=== PATIENT | female | born 1965 | race Caucasian/White ===

== ENCOUNTER → 2017-09-21 | Outpatient (CLI) | payer OTHER | LOC: FIMAGING 08:44 | PROVIDERS: ATTEND Family Medicine | DX: Z12.31 Encounter for screening mammogram for malignant neoplasm of breast (principal); Z80.3 Family history of malignant neoplasm of breast | CPT/HCPCS: G0202 ==

== ENCOUNTER 2018-03-09 20:34 | Emergency (ER) | payer OTHER ==
--- NOTE | 2018-03-09 20:51 | CPEKG ---
Heart Rate: 72 RR Interval: 833 P-R Interval: 144 QRSD Interval: 84 QT Interval: 368 QTC Interval: 403 P [place]: 74 QRS [place]: 79 T Wave [place]: 54 EKG Severity - NORMAL ECG - EKG Impression: SINUS RHYTHM Electronically Signed By: Nanci Bo 09-Mar-2018 23:01:51
--- NOTE | 2018-03-09 21:05 | EDPHY ---
H & P Stated Complaint: dizzy, SOB, anxious Time Seen by Provider: 03/09/18 20:44 HPI/ROS: CHIEF COMPLAINT: Chest pain HISTORY OF PRESENT ILLNESS: 52-year-old female presents with anxiety and diaphoresis. She has recently been under a large amount of stress and is having menopausal symptoms. 2 evenings ago she was lying in bed and had onset of sweatiness and left shoulder discomfort, associated with increased anxiety and the need to take a deep breath. This evening, she had a similar episode. She became concerned that she was having a heart attack, which prompted her visit. No history of exertional chest pain or shortness of breath. Cardiac risk factors negative. Nonsmoker; no family history; no hypertension, diabetes or hypercholesterolemia. REVIEW OF SYSTEMS: complete 10 point ROS negative except at noted in the HPI - Personal History LMP (Females 10-55): Post Menopausal - Medical/Surgical History Hx Asthma: No Hx Chronic Respiratory Disease: No Hx Diabetes: No Hx Cardiac Disease: No Hx Renal Disease: No Hx Cirrhosis: No Hx Alcoholism: No Hx HIV/AIDS: No Hx Splenectomy or Spleen Trauma: No - Social History Smoking Status: Never smoked - Physical Exam Exam: General Appearance: Alert, pleasant Eyes: Pupils equal and round, no conjunctival pallor or injection ENT, Mouth: Mucous membranes moist Neck: Normal inspection Respiratory: Lungs are clear to auscultation Cardiovascular: Regular rate and rhythm Gastrointestinal: Abdomen is soft and nontender Neurological: A&O, nonfocal exam Skin: Warm and dry, no rash Extremities: Nontender, no pedal edema Psychiatric: Anxious Constitutional: Initial Vital Signs Temperature (C) 36.4 C 03/09/18 20:37 Heart Rate 83 03/09/18 20:37 Respiratory Rate 20 03/09/18 20:37 Blood Pressure 136/89 H 03/09/18 20:37 O2 Sat (%) 99 03/09/18 20:37 O2 Delivery Mode Room Air Allergies/Adverse Reactions: amoxicillin [From Augmentin] Allergy (Verified 03/09/18 20:36) clavulanic acid [From Augmentin] Allergy (Verified 03/09/18 20:36) Home Medications: Medication Instructions Recorded NK [No Known Home Meds] 03/09/18 Medical Decision Making - Diagnostics EKG Interpretation: EKG interpreted by me reveals normal sinus rhythm, normal axis and intervals. Interpretation: Normal EKG Imaging Results: Imaging Impressions Chest X-Ray 03/09/18 20:53 Impression: Normal chest x-ray. ED Course/Re-evaluation: This patient presents with multiple symptoms, most likely secondary to anxiety. Stat EKG reveals no evidence of with ischemia or dysrhythmia. Laboratory tests and chest x-ray are unremarkable. I doubt cardiac etiology for symptoms. She feels much better after knowing that her tests are normal. She is asymptomatic on discharge. She will follow up with primary care physician and cardiology for further evaluation. Warning signs discussed. Differential Diagnosis: Differential diagnosis includes though it is not limited to pneumonia, pneumothorax, pulmonary embolism, aortic dissection, pericarditis, acute coronary syndrome. - Data Points Laboratory Results: Laboratory Results 03/09/18 20:55 03/09/18 20:55 03/09/18 03/09/18 20:55 20:55 WBC 7.09 10^3/uL 10^3/uL (3.80-9.50) RBC 4.22 10^6/uL 10^6/uL (4.18-5.33) Hgb 13.7 g/dL g/dL (12.6-16.3) Hct 38.3 % % (38.0-47.0) MCV 90.8 fL fL (81.5-99.8) MCH 32.5 pg pg (27.9-34.1) MCHC 35.8 g/dL g/dL (32.4-36.7) RDW 11.8 % % (11.5-15.2) Plt Count 245 10^3/uL 10^3/uL (150-400) MPV 9.8 fL fL (8.7-11.7) Neut % (Auto) 57.6 % % (39.3-74.2) Lymph % (Auto) 32.3 % % (15.0-45.0) [place] % (Auto) 7.9 % % (4.5-13.0) Eos % (Auto) 1.7 % % (0.6-7.6) Baso % (Auto) 0.4 % % (0.3-1.7) Nucleat RBC Rel Count 0.0 % % (0.0-0.2) Absolute Neuts (auto) 4.08 10^3/uL 10^3/uL (1.70-6.50) Absolute Lymphs (auto) 2.29 10^3/uL 10^3/uL (1.00-3.00) Absolute Monos (auto) 0.56 10^3/uL 10^3/uL (0.30-0.80) Absolute Eos (auto) 0.12 10^3/uL 10^3/uL (0.03-0.40) Absolute Basos (auto) 0.03 10^3/uL 10^3/uL (0.02-0.10) Absolute Nucleated RBC 0.00 10^3/uL 10^3/uL (0-0.01) Immature Gran % 0.1 % % (0.0-1.1) Immature Gran # 0.01 10^3/uL 10^3/uL (0.00-0.10) Sodium 139 mEq/L mEq/L (135-145) Potassium 4.0 mEq/L mEq/L (3.3-5.0) Chloride 105 mEq/L mEq/L (97-110) Carbon Dioxide 24 mEq/l mEq/l (22-31) Anion Gap 10 mEq/L mEq/L (8-16) BUN 19 mg/dL mg/dL (7-23) Creatinine 0.8 mg/dL mg/dL (0.6-1.0) Estimated GFR > 60 Glucose 117 mg/dL H mg/dL (70-100) Calcium 9.4 mg/dL mg/dL (8.5-10.4) Troponin I 0.021 ng/mL ng/mL (0.000-0.034) Departure - Departure Disposition: Home, Routine, Self-Care Clinical Impression: Chest pain Qualifiers: Chest pain type: unspecified Qualified Code(s): R07.9 - Chest pain, unspecified Condition: Good Instructions: Chest Pain (ED) Additional Instructions: 1. Based upon the testing done in the Emergency Department today we see no evidence of a heart attack. 2. We are unable to fully exclude coronary artery disease based upon the testing available in the Emergency Department. 3. For this reason, we would like you to be seen by cardiology for consideration of additional testing within the next 3 days. 4. Please contact the health and social care teacher you have been referred to schedule this appointment. Their offices are typically open from 8:30am-5pm M-F. 5. Please return to the Emergency Department immediately for chest pain, difficulty breathing or other concerns. Referrals: Mya Phan MD [Primary Care Provider] - As per Instructions Alessandro Browning MD [Medical Doctor] - As per Instructions (Call to make an appointment.)
[2018-03-09 21:17] LABS: PLATELET COUNT 245 10^3/uL (150-400)
[2018-03-09 22:30] VITALS: BP 114/76
== END 2018-03-09 22:32 | disposition home or self-care (01) ==
DX: R07.9 Chest pain, unspecified (principal)

== ENCOUNTER → 2018-11-09 | Outpatient (CLI) | payer OTHER | LOC: FIMAGING 15:58 | PROVIDERS: ATTEND Family Medicine | DX: Z12.31 Encounter for screening mammogram for malignant neoplasm of breast (principal); Z80.3 Family history of malignant neoplasm of breast ==

== ENCOUNTER → 2019-04-03 | Outpatient (CLI) | payer OTHER | LOC: BMCIMAGING 14:26 ==

== ENCOUNTER 2019-04-15 20:27 | Emergency (ER) | payer OTHER | END 2019-04-15 23:57 | disposition home or self-care (01) ==